=== PATIENT | male | born 1990 | race Caucasian/White ===

== ENCOUNTER 2022-03-01 14:39 | Emergency (ER) | payer BC ==
[~2022-03-01] VITALS: Ht 180.3 cm; Wt 118.0 kg
[2022-03-01 14:41] VITALS: BP 148/92
[2022-03-01 18:06] LABS: ALBUMIN 3.8 G/DL (3.4-5.0); ANION GAP 8 (8-16); BLOOD UREA NITROGEN 7 MG/DL (7-18); BUN/CREATININE RATIO 6.3 (5.4-32.0); CALCIUM 9.1 MG/DL (8.5-10.1); CHLORIDE 102 MMOL/L (99-107); CREATININE 1.12 MG/DL (0.60-1.10); GLUCOSE 96 MG/DL (70-104); MAGNESIUM 2.3 MG/DL (1.5-2.4); POTASSIUM 4.1 MMOL/L (3.5-5.1); SODIUM 140 MMOL/L (135-145); TOTAL CARBON DIOXIDE 30.1 MMOL/L (24-32); eGFR 76 ML/MIN
[2022-03-01] MEDS ORDERED: CYCL-392 PO (18:54)
== END 2022-03-01 19:32 | disposition home or self-care (01) ==
LOC: ER 14:39
DX: R25.2 Cramp and spasm (principal)
CPT/HCPCS: 36415; 80048; 83735; 99283

== ENCOUNTER 2022-03-07 18:50 | Emergency (ER) | payer BC ==
[~2022-03-07] VITALS: Ht 180.3 cm; Wt 117.2 kg
[~2022-03-07 18:50] MED LIST: CYCL-392 PO
[2022-03-07 18:59] VITALS: BP 109/57
[2022-03-07] MEDS ORDERED: ketorolac trometh. 30mg/ml inj. IM ONE (19:45)
[2022-03-07] MEDS ORDERED: IBUP-1984 PO (20:15)
== END 2022-03-07 20:36 | disposition home or self-care (01) ==
LOC: ER 18:51
DX: S76.011A Strain of muscle, fascia and tendon of right hip, initial encounter (principal); Z79.899 Other long term (current) drug therapy; X58.XXXA Exposure to other specified factors, initial encounter; Y93.89 Activity, other specified; Y92.89 Other specified places as the place of occurrence of the external cause; Y99.8 Other external cause status
CPT/HCPCS: 73502; 96372; 99283; J1885

== ENCOUNTER 2024-06-14 08:27 | Emergency (ER) | payer BC, MEDICAID ==
[~2024-06-14] VITALS: Ht 182.9 cm; Wt 128.0 kg
[2024-06-14] MEDS ORDERED: SULF1TAB49 PO (09:52)
[2024-06-14] MEDS: ketorolac trometh 15mg/ml vial 15 MG/ML ML IM ONE (10:08)
[2024-06-14 10:12] VITALS: BP 132/84; PULSE 90; RESP 16; TEMP 97.9; O2SAT 99
== END 2024-06-14 10:14 | disposition home or self-care (01) ==
LOC: ER 08:28
DX: L02.03 Carbuncle of face (principal)
CPT/HCPCS: 96372; 99283; J1885